=== PATIENT | male | born 1960 | race Caucasian/White ===

== ENCOUNTER 2018-01-02 14:06 | Emergency (ER) | payer OTHER ==
[~2018-01-02] VITALS: Ht 180.3 cm; Wt 131.5 kg
[~2018-01-02 14:06] MED LIST: ALBU90OI INH; AMLO5 PO; AZIT250 PO; CYCL10 PO; LOSA25 PO; MECL25 PO; METPRE4DP PO; Monodox100 MG PO; Norco 5-325 Ta1 EACH PO; ONDA8ODT MM; PRED20 PO; Prednisone20 MG PO; SPACE CHAMBER1 EACH MC
[2018-01-02] MEDS ORDERED: Ultram50 MG PO (15:18)
[2018-01-02] MEDS ORDERED: CYCL10 PO (15:18)
== END 2018-01-02 15:28 | disposition home or self-care (01) ==
LOC: ER 14:06
DX: M26.602 Left temporomandibular joint disorder, unspecified (principal); Z79.899 Other long term (current) drug therapy; Z87.891 Personal history of nicotine dependence
CPT/HCPCS: 96372; 99283; J1885

== ENCOUNTER 2018-01-16 15:35 | Emergency (ER) | payer OTHER ==
[~2018-01-16] VITALS: Ht 180.3 cm; Wt 134.3 kg
[~2018-01-16 15:35] MED LIST changes: +Ultram50 MG PO
[2018-01-16] MEDS ORDERED: Norco 5-325 Ta1 EACH PO (16:25)
[2018-01-16] MEDS ORDERED: METPRE4DP PO (16:25)
[2018-01-16] MEDS ORDERED: CYCL10 PO (16:25)
== END 2018-01-16 16:34 | disposition home or self-care (01) ==
LOC: ER 15:35
DX: M26.622 Arthralgia of left temporomandibular joint (principal); Z79.899 Other long term (current) drug therapy; Z87.891 Personal history of nicotine dependence
CPT/HCPCS: 99283

== ENCOUNTER 2018-05-18 14:21 | Emergency (ER) | payer OTHER ==
[~2018-05-18] VITALS: Ht 180.3 cm; Wt 129.7 kg
[2018-05-18] MEDS ORDERED: CLIN300 PO (15:07)
[2018-05-18] MEDS ORDERED: AMOX250 PO (15:08)
[2018-05-18] MEDS ORDERED: NAPR550 PO (16:15)
[2018-05-18] MEDS ORDERED: CYCL10 PO (16:15)
== END 2018-05-18 16:23 | disposition home or self-care (01) ==
LOC: ER 14:21
DX: M26.622 Arthralgia of left temporomandibular joint (principal); H61.22 Impacted cerumen, left ear; Z79.899 Other long term (current) drug therapy; Z87.891 Personal history of nicotine dependence
CPT/HCPCS: 99282

== ENCOUNTER 2018-07-04 15:35 | Emergency (ER) | payer OTHER ==
[~2018-07-04] VITALS: Ht 180.3 cm; Wt 127.9 kg
[~2018-07-04 15:35] MED LIST changes: +AMOX250 PO; +CLIN300 PO; +NAPR550 PO
[2018-07-04] MEDS ORDERED: Naprosyn500 MG PO (16:14)
== END 2018-07-04 16:32 | disposition home or self-care (01) ==
LOC: ER 15:35
DX: M26.602 Left temporomandibular joint disorder, unspecified (principal); Z79.899 Other long term (current) drug therapy; Z79.51 Long term (current) use of inhaled steroids; Z87.891 Personal history of nicotine dependence
CPT/HCPCS: 99283

== ENCOUNTER → 2018-11-16 | Outpatient (CLI) | payer OTHER ==
[~2018-11-16] MED LIST changes: +Naprosyn500 MG PO
[2018-11-16 10:22] LABS: Protein, Urine Quantitative 6.9 mg/dL (0.0-11.9)
[2018-11-16 11:40] LABS: Microalbumin, Urine Quant. <5.000 mg/L (0.000-20.000)
== END | disposition home or self-care (01) ==
LOC: LAB 08:40 → LAB SHORT 08:40
PROVIDERS: Internal Medicine Nephrology
DX: N18.2 Chronic kidney disease, stage 2 (mild) (principal); D63.1 Anemia in chronic kidney disease
CPT/HCPCS: 81050; 82043; 82570; 84156

== ENCOUNTER → 2019-03-12 | Outpatient (CLI) | payer OTHER ==
[2019-03-12 09:19] LABS: Anion Gap 4 mmol/L (6-16); Blood Urea Nitrogen 14 mg/dL (8-24); CO2, Blood 28 mmol/L (21-32); Calcium, Blood 8.4 mg/dL (8.5-10.1); Chloride, Blood 103 mmol/L (98-108); Creatinine, Blood 0.83 mg/dL (0.60-1.20); Glomerular Filtration Rate >60 (60-); Glucose, Blood 117 mg/dL (70-99); Phosphorus, Blood 3.9 mg/dL (2.5-4.9); Potassium, Blood 4.3 mmol/L (3.5-5.5); Sodium, Blood 135 mmol/L (136-145)
== END | disposition home or self-care (01) ==
LOC: LAB 08:45 → LAB SHORT 08:45 → LAB FUT 09-18 13:05
PROVIDERS: Internal Medicine Nephrology
DX: N18.2 Chronic kidney disease, stage 2 (mild) (principal); D63.1 Anemia in chronic kidney disease
CPT/HCPCS: 36415; 80069; 85018

== ENCOUNTER 2019-07-16 17:09 | Emergency (ER) | payer OTHER ==
[~2019-07-16] VITALS: Ht 180.3 cm; Wt 132.4 kg
[2019-07-16] MEDS ORDERED: Bactrim Ds Tab1 EACH PO (17:21)
[2019-07-16] MEDS ORDERED: Keflex500 MG PO (17:21)
[2019-07-16] MEDS ORDERED: CEPH500 PO (17:24)
== END 2019-07-16 17:27 | disposition home or self-care (01) ==
LOC: ER 17:09
DX: L02.415 Cutaneous abscess of right lower limb (principal); L03.115 Cellulitis of right lower limb; Z87.891 Personal history of nicotine dependence; Z79.899 Other long term (current) drug therapy
CPT/HCPCS: 99281

== ENCOUNTER 2019-07-23 08:10 | Emergency (ER) | payer OTHER ==
[~2019-07-23] VITALS: Ht 180.3 cm; Wt 132.4 kg
[~2019-07-23 08:10] MED LIST changes: +Bactrim Ds Tab1 EACH PO; +CEPH500 PO; +Keflex500 MG PO
[2019-07-23] MEDS ORDERED: Ultram50 MG PO (08:36)
[2019-07-23] MEDS ORDERED: Mupirocin22 GM TOP (08:36)
== END 2019-07-23 09:04 | disposition home or self-care (01) ==
LOC: ER 08:10
DX: L02.415 Cutaneous abscess of right lower limb (principal); Z79.899 Other long term (current) drug therapy; Z87.891 Personal history of nicotine dependence
CPT/HCPCS: 99282

== ENCOUNTER 2020-03-19 13:19 | Emergency (ER) | payer OTHER ==
[~2020-03-19] VITALS: Ht 180.3 cm; Wt 132.4 kg
[~2020-03-19 13:19] MED LIST changes: +Mupirocin22 GM TOP
[2020-03-19] MEDS ORDERED: HYDCHL25 PO (14:17)
[2020-03-19] MEDS ORDERED: METFORMIN HCL500 M2 PO (14:18)
[2020-03-19] MEDS ORDERED: ESCI10 PO (14:18)
[2020-03-19] MEDS ORDERED: Norco 5-325 Ta1 EACH PO (15:17)
[2020-03-19] MEDS ORDERED: Robaxin-750750 MG PO (15:17)
== END 2020-03-19 15:34 | disposition home or self-care (01) ==
LOC: ER 13:19
DX: R07.81 Pleurodynia (principal); Z79.899 Other long term (current) drug therapy; Z87.891 Personal history of nicotine dependence
CPT/HCPCS: 71046; 99283-25

== ENCOUNTER 2024-12-19 08:56 | Emergency (ER) | payer OTHER ==
[~2024-12-19] VITALS: Ht 180.3 cm; Wt 136.1 kg
[~2024-12-19 08:56] MED LIST changes: +ESCI10 PO; +ESCI20 PO; +FUROSEMIDE40 MG PO; +HYDCHL25 PO; +KLOR-CON 1010 ME9 PO; +METFORMIN HCL500 M2 PO; +Robaxin-750750 MG PO; +Tegretol200 MG PO
[2024-12-19] MEDS ORDERED: Ipratropium/Albuterol SulF 2.5-0.5MG/3 ML Amp INH ONE (09:25)
[2024-12-19] MEDS ORDERED: PredniSONE 20 MG Tab PO ONE (09:25)
[2024-12-19 10:11] LABS: CORONAVIRUS COVID-19 AG Negative (NEGATIVE); INFLUENZA A AG Negative (NEGATIVE); INFLUENZA B AG Negative (NEGATIVE)
[2024-12-19 11:21] LABS: BASOPHILS ABSOLUTE AUTO 0.03 K/mm3 (0.00-0.23); BASOPHILS PERCENT AUTO 0 % (0-2); EOSINOPHILS PERCENT AUTO 2 % (0-6); Hematocrit 49.3 % (37.0-53.0); Hemoglobin 16.6 g/dL (13.5-17.5); IMMATURE GRAN ABSOLUTE AUTO 0.07 K/mm3 (0.00-0.10); IMMATURE GRAN PERCENT AUTO 1 % (0-1); LYMPHOCYTES ABSOLUTE AUTO 1.14 K/mm3 (0.84-5.20); LYMPHOCYTES PERCENT AUTO 11 % (21-46); MONOCYTES ABSOLUTE AUTO 0.41 K/mm3 (0.16-1.47); MONOCYTES PERCENT AUTO 4 % (4-13); Mean Corpuscular HGB 32.9 pg (26.0-34.0); Mean Corpuscular HGB Conc 33.7 g/dL (31.5-36.5); Mean Corpuscular Volume 98 fL (80-100); Mean Platelet Volume 8.9 fL (9.1-12.4); NEUTROPHILS ABSOLUTE AUTO 8.79 K/mm3 (1.96-9.15); NEUTROPHILS PERCENT AUTO 83 % (41-73); NRBC ABSOLUTE 0.03 K/mm3 (0.00-0.02); NRBC Auto 0.3 /100 WBC (0.0-0.2); Platelet Count 245 K/mm3 (150-400); RDW Coefficient Variation 13.5 % (11.7-14.2); RDW Standard Deviation 48.2 fL (35.1-46.3); Red Blood Cell Count 5.05 M/mm3 (4.30-5.90); White Blood Cell Count 10.64 K/mm3 (4.00-11.30)
[2024-12-19 11:47] LABS: Albumin, Blood 3.5 g/dL (3.4-5.0); Albumin/Globulin Ratio 0.9 (0.8-1.8); Bilirubin, Total 0.7 mg/dL (0.1-1.0); Bun/Creatinine Ratio 5.8 (12.0-20.0); Calcium, Blood 8.5 mg/dL (8.5-10.1); Creatinine, Blood 0.69 mg/dL (0.60-1.20); Globulin, Blood 3.9 g/dL (2.2-4.0); Potassium, Blood 3.7 mmol/L (3.5-5.5); Total Protein, Blood 7.4 g/dL (6.4-8.2)
[2024-12-19 12:45] VITALS: BP 147/77
[2024-12-19] MEDS ORDERED: ALBU90OI INH (13:04)
[2024-12-19] MEDS ORDERED: Prednisone20 MG PO (13:04)
== END 2024-12-19 13:13 | disposition home or self-care (01) ==
LOC: ER 08:56
PROVIDERS: Emergency Medicine
DX: R06.02 Shortness of breath (principal); Z79.899 Other long term (current) drug therapy; Z79.84 Long term (current) use of oral hypoglycemic drugs; Z87.891 Personal history of nicotine dependence
CPT/HCPCS: 71046; 80053; 83880; 84484; 85025; 87428-QW; 93005; 93010; 94640; 94664; 99285-25; J7512

== ENCOUNTER 2024-12-30 20:46 | Emergency (ER) | payer OTHER ==
[~2024-12-30] VITALS: Ht 180.3 cm; Wt 138.3 kg
[2024-12-30] MEDS ORDERED: LORazepam 2 MG/ML 1ML Injection IV ONE (21:15)
[2024-12-30 21:18] LABS: BASOPHILS ABSOLUTE AUTO 0.06 K/mm3 (0.00-0.23); BASOPHILS PERCENT AUTO 0 % (0-2); EOSINOPHILS ABSOLUTE AUTO 0.44 K/mm3 (0.00-0.68); EOSINOPHILS PERCENT AUTO 3 % (0-6); Hematocrit 50.4 % (37.0-53.0); Hemoglobin 16.8 g/dL (13.5-17.5); IMMATURE GRAN ABSOLUTE AUTO 0.08 K/mm3 (0.00-0.10); IMMATURE GRAN PERCENT AUTO 1 % (0-1); LYMPHOCYTES ABSOLUTE AUTO 1.64 K/mm3 (0.84-5.20); LYMPHOCYTES PERCENT AUTO 12 % (21-46); MONOCYTES ABSOLUTE AUTO 1.02 K/mm3 (0.16-1.47); MONOCYTES PERCENT AUTO 7 % (4-13); Mean Corpuscular HGB 32.8 pg (26.0-34.0); Mean Corpuscular HGB Conc 33.3 g/dL (31.5-36.5); Mean Corpuscular Volume 98 fL (80-100); Mean Platelet Volume 8.9 fL (9.1-12.4); NEUTROPHILS ABSOLUTE AUTO 10.76 K/mm3 (1.96-9.15); NEUTROPHILS PERCENT AUTO 77 % (41-73); Platelet Count 255 K/mm3 (150-400); RDW Coefficient Variation 13.5 % (11.7-14.2); RDW Standard Deviation 49.2 fL (35.1-46.3); Red Blood Cell Count 5.12 M/mm3 (4.30-5.90)
[2024-12-30 21:40] LABS: Albumin, Blood 3.5 g/dL (3.4-5.0); Albumin/Globulin Ratio 0.9 (0.8-1.8); Bilirubin, Total 0.9 mg/dL (0.1-1.0); Bun/Creatinine Ratio 4.8 (12.0-20.0); Calcium, Blood 8.4 mg/dL (8.5-10.1); Creatinine, Blood 0.84 mg/dL (0.60-1.20); Potassium, Blood 3.6 mmol/L (3.5-5.5); Total Protein, Blood 7.5 g/dL (6.4-8.2)
[2024-12-30 22:34] VITALS: BP 143/89
== END 2024-12-30 22:56 | disposition home or self-care (01) ==
LOC: ER 20:46
PROVIDERS: Student in an Organized Health Care Education/Training Program
DX: Z03.822 Encounter for observation for suspected aspirated (inhaled) foreign body ruled out (principal); Z79.899 Other long term (current) drug therapy; Z87.891 Personal history of nicotine dependence
CPT/HCPCS: 71045; 71260; 80053; 84484; 85025; 93005; 93010; 96374-59; 99284-25; J2060; Q9967

== ENCOUNTER 2025-01-11 17:18 | Inpatient (IN) | payer OTHER ==
[~2025-01-11] VITALS: Ht 180.3 cm; Wt 136.1 kg
[2025-01-11] MEDS ORDERED: Gabapentin 300 MG Cap PO ONE ×2 (17:40→19:20)
[2025-01-11] MEDS ORDERED: Ipratropium/Albuterol SulF 2.5-0.5MG/3 ML Amp INH ONE (17:40)
[2025-01-11 18:15] LABS: BASOPHILS ABSOLUTE AUTO 0.06 K/mm3 (0.00-0.23); BASOPHILS PERCENT AUTO 1 % (0-2); EOSINOPHILS ABSOLUTE AUTO 0.51 K/mm3 (0.00-0.68); EOSINOPHILS PERCENT AUTO 4 % (0-6); Hematocrit 51.9 % (37.0-53.0); IMMATURE GRAN ABSOLUTE AUTO 0.04 K/mm3 (0.00-0.10); IMMATURE GRAN PERCENT AUTO 0 % (0-1); LYMPHOCYTES ABSOLUTE AUTO 1.63 K/mm3 (0.84-5.20); LYMPHOCYTES PERCENT AUTO 14 % (21-46); MONOCYTES ABSOLUTE AUTO 1.01 K/mm3 (0.16-1.47); MONOCYTES PERCENT AUTO 8 % (4-13); Mean Corpuscular HGB 31.7 pg (26.0-34.0); Mean Corpuscular HGB Conc 32.8 g/dL (31.5-36.5); Mean Corpuscular Volume 97 fL (80-100); Mean Platelet Volume 9.1 fL (9.1-12.4); NEUTROPHILS ABSOLUTE AUTO 8.77 K/mm3 (1.96-9.15); NEUTROPHILS PERCENT AUTO 73 % (41-73); Platelet Count 284 K/mm3 (150-400); RDW Coefficient Variation 13.3 % (11.7-14.2); RDW Standard Deviation 47.8 fL (35.1-46.3); Red Blood Cell Count 5.37 M/mm3 (4.30-5.90); White Blood Cell Count 12.02 K/mm3 (4.00-11.30)
[2025-01-11 18:41] LABS: Albumin, Blood 3.5 g/dL (3.4-5.0); Albumin/Globulin Ratio 0.9 (0.8-1.8); Bilirubin, Total 0.7 mg/dL (0.1-1.0); Bun/Creatinine Ratio 10.3 (12.0-20.0); Calcium, Blood 9.1 mg/dL (8.5-10.1); Creatinine, Blood 0.78 mg/dL (0.60-1.20); Globulin, Blood 3.7 g/dL (2.2-4.0); Potassium, Blood 3.7 mmol/L (3.5-5.5); Total Protein, Blood 7.2 g/dL (6.4-8.2)
[2025-01-11] MEDS ORDERED: MethylPREDNISolone Sod Succ 125 MG Vial IV ONE (19:20)
[2025-01-11] MEDS ORDERED: Aspirin 325 MG Tab PO ONE (20:20)
[2025-01-11 21:46] LABS: Influenza A, PCR NEGATIVE (NEGATIVE); Influenza B, PCR NEGATIVE (NEGATIVE); Resp Syncytial Virus, PCR NEGATIVE (NEGATIVE); SARS-Cov-2 (COVID-19) PCR, MMC NEGATIVE (NEGATIVE)
[2025-01-12] VITALS (9 sets, daily range): BP systolic 146–172; BP diastolic 80–105
[2025-01-12] MEDS ORDERED: Ondansetron HCl 2 MG / ML 2ML Vial IV PRN (01:15)
[2025-01-12] MEDS ORDERED: Ipratropium/Albuterol SulF 2.5-0.5MG/3 ML Amp INH PRN (01:15)
[2025-01-12] MEDS ORDERED: Azithromycin 500 MG in NS 250 ML IV SCH (01:27)
--- NOTE | 2025-01-12 02:35 | NUR ---
Admission note: Pt arrived on unit at 0035, pt admitted for dyspnea/sob. A&Ox4, alert and cooperative w/ care. On arrival, SOB on transfer, mildly diaphoretic pt reports this has improved since earlier in day. On arrival b/p elevated, has since come down within normal range w/o intervention. Pt maintaining adequate saturation on RA, CPAP put in place by RT, pt tolerating well. 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 Denies pain. Running SR on tele, rate 80s. Bed locked in lowest position, call light within reach, continuing to monitor.
[2025-01-12] MEDS ORDERED: Mometasone/Formoterol MDI 200/5 mcg 13 GM INH SCH (03:00)
[2025-01-12 04:24] LABS: BASOPHILS ABSOLUTE AUTO 0.02 K/mm3 (0.00-0.23); BASOPHILS PERCENT AUTO 0 % (0-2); EOSINOPHILS ABSOLUTE AUTO 0.01 K/mm3 (0.00-0.68); EOSINOPHILS PERCENT AUTO 0 % (0-6); Hematocrit 52.9 % (37.0-53.0); Hemoglobin 17.6 g/dL (13.5-17.5); IMMATURE GRAN ABSOLUTE AUTO 0.06 K/mm3 (0.00-0.10); IMMATURE GRAN PERCENT AUTO 1 % (0-1); LYMPHOCYTES ABSOLUTE AUTO 0.66 K/mm3 (0.84-5.20); LYMPHOCYTES PERCENT AUTO 5 % (21-46); MONOCYTES ABSOLUTE AUTO 0.15 K/mm3 (0.16-1.47); MONOCYTES PERCENT AUTO 1 % (4-13); Mean Corpuscular HGB Conc 33.3 g/dL (31.5-36.5); Mean Corpuscular Volume 96 fL (80-100); Mean Platelet Volume 9.8 fL (9.1-12.4); NEUTROPHILS ABSOLUTE AUTO 12.28 K/mm3 (1.96-9.15); NEUTROPHILS PERCENT AUTO 93 % (41-73); Platelet Count 324 K/mm3 (150-400); RDW Coefficient Variation 13.3 % (11.7-14.2); RDW Standard Deviation 47.5 fL (35.1-46.3); White Blood Cell Count 13.18 K/mm3 (4.00-11.30)
[2025-01-12 04:47] LABS: Albumin, Blood 3.4 g/dL (3.4-5.0); Albumin/Globulin Ratio 0.9 (0.8-1.8); Bilirubin, Total 0.9 mg/dL (0.1-1.0); Calcium, Blood 8.6 mg/dL (8.5-10.1); Creatinine, Blood 0.64 mg/dL (0.60-1.20); Globulin, Blood 3.9 g/dL (2.2-4.0); Potassium, Blood 4.2 mmol/L (3.5-5.5); Total Protein, Blood 7.3 g/dL (6.4-8.2)
--- NOTE | 2025-01-12 05:01 | NUR ---
Shift summary: PT A&OX4, COOPERATIVE W/ STAFF AND CARE. 1 STAFF ASSIST D/T SOB ON EXERTION. SEE ADMISSION SUMMARY REGARDING FURTHER DETAILS. CPAP WAS PUT IN PLACE W/ RT, HAS BEEN ON THROUGHOUT SHIFT SINCE. CPAP ON 03-28, TOLERATING WELL. PT STATED THAT HIS BREATHING IMPROVED AFTER CPAP AND DENIED ANY FURTHER SOB THROUGHOUT SHIFT. O2 SATURATIONS STAYING AT >90%, ON TELE SR W/ HR >90S. BED IN LOWEST POSITION, CALL LIGHT WITHIN REACH, ADVISED PT TO ADVISE STAFF WHEN HE NEEDS ASSISTANCE TO RESTROOM OR ANY ACTIVITIES. CONTINUE TO MONITOR.
[2025-01-12] MEDS ORDERED: Neurontin300 MG PO (05:31)
[2025-01-12] MEDS ORDERED: ESCI10 PO (05:33)
[2025-01-12] MEDS ORDERED: Amitriptyline H10 MG PO (05:34)
[2025-01-12] MEDS ORDERED: Gabapentin 300 MG Cap PO SCH ×3 (05:40→14:00)
[2025-01-12] MEDS ORDERED: LORazepam 2 MG/ML 1ML Injection IV ONE (05:45)
[2025-01-12] MEDS ORDERED: Albuterol HFA200 ACT/6.7 GM INH INH PRN (06:20)
--- NOTE | 2025-01-12 06:35 | NUR ---
REVIEWED ALL [employer] CHECKER DOCUMENTATION AND AGREE WITH ALL ABOVE.
[2025-01-12] MEDS ORDERED: Furosemide 40 MG Tab PO SCH (09:00)
[2025-01-12] MEDS ORDERED: MethylPREDNISolone Sod Succ 125 MG Vial IV SCH (09:00)
[2025-01-12] MEDS ORDERED: Losartan Potassium 50 MG Tab PO SCH (09:00)
[2025-01-12] MEDS ORDERED: HydroCHLOROthiazide 25 mg Tab PO SCH (09:00)
[2025-01-12] MEDS ORDERED: Citalopram Hydrobromide 20 MG Tab PO SCH (09:00)
[2025-01-12] MEDS ORDERED: Enoxaparin 40 MG/0.4 ML SYR SC SCH (09:00)
[2025-01-12] MEDS ORDERED: Insulin Human Lispro 100 Units/ML 3ML Syringe SC SCH (11:30)
[2025-01-12] MEDS ORDERED: Amitriptyline HCl 10 MG Tab PO SCH (21:00)
[2025-01-13 03:44] LABS: Hematocrit 51.2 % (37.0-53.0); Hemoglobin 16.6 g/dL (13.5-17.5); Mean Corpuscular HGB 31.6 pg (26.0-34.0); Mean Corpuscular HGB Conc 32.4 g/dL (31.5-36.5); Mean Corpuscular Volume 97 fL (80-100); Mean Platelet Volume 9.6 fL (9.1-12.4); Platelet Count 379 K/mm3 (150-400); RDW Coefficient Variation 13.4 % (11.7-14.2); RDW Standard Deviation 47.8 fL (35.1-46.3); Red Blood Cell Count 5.26 M/mm3 (4.30-5.90); White Blood Cell Count 21.21 K/mm3 (4.00-11.30)
--- NOTE | 2025-01-13 04:00 | NUR ---
SHIFT SUMMARY PATIENT IS ALERT AND ORIENTED. PATIENT HAS HAD NO ACUTE EVENTS THIS SHIFT. PATIENT HAS BEEN A 1X ASSIST DUE TO SOB ON EXERTION AND HELP WITH LINES. PATIENT IS ON 3L NC WITH CPAP AT [facility]. PATIENT HAS HAD NO COMPLAINTS OF PAIN, NAUSEA, SOB OR VOMITTING THIS SHIFT. BED IN LOCKED AND LOWEST POSITION. CALL LIGHT IN PLACE. CALLS APPROPRIATELY.
[2025-01-13 04:08] VITALS: BP 158/101
[2025-01-13 04:18] LABS: Bun/Creatinine Ratio 14.8 (12.0-20.0); Calcium, Blood 8.8 mg/dL (8.5-10.1); Creatinine, Blood 0.95 mg/dL (0.60-1.20); Potassium, Blood 4.3 mmol/L (3.5-5.5)
[2025-01-13 07:36] VITALS: BP 154/97
[2025-01-13 11:21] VITALS: BP 153/92
[2025-01-13 15:17] VITALS: BP 125/88
--- NOTE | 2025-01-13 17:04 | NUR ---
SHIFT SUMMARY PT REMAINS ALERT AND ORIENTED. BP REMAINS STABLE. PT TITRATED TO ROOM AIR THIS AM AND O2 SATS HAVE REMAINED ABOVE 90%. PT DENIES ANY PAIN. PT UP INDEPENDENT TO THE BATHROOM NEEDED TO VOID. PLAN FOR PT TO HAVE OVERNIGHT OXIMETRY DONE THIS EVENING.
[2025-01-13 20:40] VITALS: BP 149/86
--- NOTE | 2025-01-14 01:05 | NUR ---
ASSUMPTION OF CARE/PATIENT UPDATE THIS RN ASSUMED CARE OF PATIENT AT 1900. PT A&O X4. ABLE TO MAKE NEEDS KNOWN. INDEPENDENT WITH ADL'S. ON RA WITH SPO2 >92% AT REST; NOTED DYSPNEA WITH EXERTION. SR ON MONITOR. BP STABLE. AFEBRILE. PT STARTED SLEEP OXIMETRY STUDY EARLIER IN SHIFT AND CONTINUES TO BE SLEEPING FOR STUDY. NOTED DESATTING FREQUENTLY ON MONITOR WITH SPO2 LOW 80'S. PT CHEST RISE/FALL NOTED. CONTINUES TO BE ON TELE. THIS RN DID NOT GET MIDNIGHT VITALS D/T SLEEP STUDY ONGOING. IF PATIENT WAKES, VITALS WILL BE TAKEN; CONSTRUCTION EQUIPMENT OPERATOR AWARE. BED IN LOWEST POSITION AND CALL LIGHT WITHIN REACH.
[2025-01-14 01:57] VITALS: BP 157/97
[2025-01-14 05:18] VITALS: BP 157/102
--- NOTE | 2025-01-14 05:21 | NUR ---
SHIFT SUMMARY SEE PREVIOUS NOTE NO NEURO CHANGES. PT COMPLETED SLEEP OXIMETRY STUDY AROUND 0500 THIS AM. PT NOTED TO HAVE FREQUENTLY DESATTED TO 80'S, RECOVERING TO THE LOW 90'S WHILE REMAINING ON RA. WHEN SLEEP STUDY COMPLETED, PT DECLINED TO WEAR CPAP. HTN NOTED THIS AM. OTHER VSS. PT WALKING TO BATHROOM INDEPENDENTLY TO VOID. PT STATED THAT HE "FORGOT" TO USE URINAL. BED IN LOWEST POSITION AND CALL LIGHT WITHIN REACH. THIS RN WILL REPORT TO ONCOMING DAYSHIFT RN.
[2025-01-14 07:04] LABS: BASOPHILS ABSOLUTE AUTO 0.04 K/mm3 (0.00-0.23); BASOPHILS PERCENT AUTO 0 % (0-2); EOSINOPHILS ABSOLUTE AUTO 0.03 K/mm3 (0.00-0.68); EOSINOPHILS PERCENT AUTO 0 % (0-6); Hemoglobin 17.7 g/dL (13.5-17.5); IMMATURE GRAN PERCENT AUTO 1 % (0-1); LYMPHOCYTES ABSOLUTE AUTO 0.97 K/mm3 (0.84-5.20); LYMPHOCYTES PERCENT AUTO 5 % (21-46); MONOCYTES ABSOLUTE AUTO 0.92 K/mm3 (0.16-1.47); MONOCYTES PERCENT AUTO 4 % (4-13); Mean Corpuscular HGB 32.4 pg (26.0-34.0); Mean Corpuscular HGB Conc 33.4 g/dL (31.5-36.5); Mean Corpuscular Volume 97 fL (80-100); Mean Platelet Volume 9.3 fL (9.1-12.4); NEUTROPHILS ABSOLUTE AUTO 18.77 K/mm3 (1.96-9.15); NEUTROPHILS PERCENT AUTO 90 % (41-73); Platelet Count 382 K/mm3 (150-400); RDW Coefficient Variation 13.5 % (11.7-14.2); RDW Standard Deviation 48.5 fL (35.1-46.3); Red Blood Cell Count 5.46 M/mm3 (4.30-5.90); White Blood Cell Count 20.83 K/mm3 (4.00-11.30)
[2025-01-14 07:34] VITALS: BP 132/88
[2025-01-14 07:35] LABS: Albumin, Blood 3.5 g/dL (3.4-5.0); Albumin/Globulin Ratio 0.9 (0.8-1.8); Bilirubin, Total 0.8 mg/dL (0.1-1.0); Bun/Creatinine Ratio 21.5 (12.0-20.0); Calcium, Blood 8.6 mg/dL (8.5-10.1); Creatinine, Blood 0.79 mg/dL (0.60-1.20); Globulin, Blood 3.7 g/dL (2.2-4.0); Potassium, Blood 4.4 mmol/L (3.5-5.5); Total Protein, Blood 7.2 g/dL (6.4-8.2)
[2025-01-14] MEDS ORDERED: IPRAT-ALBUT 0.5-3 ML INH (16:01)
[2025-01-14] MEDS ORDERED: DULERA 200 MCG-13 GM INH (16:07)
[2025-01-14 16:11] VITALS: BP 140/90
--- NOTE | 2025-01-14 17:33 | NUR ---
PT A&OX4 AND WAS CALM AND COOPERATIVE. VSS ON ROOM AIR. PT INDEPENDENT TO BATHROOM AND AMBULATING AROUND ROOM. PT EDUCATED ON HOME TRILEGY AND NEBULIZER USE. PT WAS RECEPTIVE TO EDUCATION AND RESTATED EDUCATION FOR UNDERSTANDING. PT INSTRUCTED TO FOLLOW UP WITH PROVIDERS AFTER DISCHARGE. MEDS SENT TO PT REQUESTED PHARMACY. PRESENT AT DISCHARGE TO TAKE PT HOME.
== END 2025-01-14 17:41 | disposition home or self-care (01) | DRG 202 ==
LOC: ER 17:18 → ERHOLD 23:22 → PCU 23:22
PROVIDERS: Internal Medicine; Student in an Organized Health Care Education/Training Program; ADMIT Internal Medicine
PROC: 5A09357 Assistance with Respiratory Ventilation, Less than 24 Consecutive Hours, Continuous Positive Airway Pressure (ICD-10-PCS; principal; 2025-01-12)
DX: J45.901 Unspecified asthma with (acute) exacerbation (principal); Z68.41 Body mass index [BMI] 40.0-44.9, adult; J20.9 Acute bronchitis, unspecified; I10 Essential (primary) hypertension; E66.01 Morbid (severe) obesity due to excess calories; J39.8 Other specified diseases of upper respiratory tract; E11.9 Type 2 diabetes mellitus without complications; G50.0 Trigeminal neuralgia; Z96.662 Presence of left artificial ankle joint; K76.0 Fatty (change of) liver, not elsewhere classified; Z79.899 Other long term (current) drug therapy; Z79.84 Long term (current) use of oral hypoglycemic drugs; Z79.52 Long term (current) use of systemic steroids; Z79.51 Long term (current) use of inhaled steroids; Z98.890 Other specified postprocedural states; Z87.891 Personal history of nicotine dependence
CPT/HCPCS: 0241U; 36415; 71046; 71260; 80048; 80053; 82947; 83880; 84443; 84484; 85025; 85027; 93005; 93010; 93306; 94640; 94660; 94664; 94761; 94762; 96374; 99285-25; A9270; G0378; J0456; J1650; J2060; J2919; J7050; Q9967

== ENCOUNTER 2025-05-02 07:06 | Emergency (ER) | payer OTHER ==
[~2025-05-02] VITALS: Ht 180.3 cm; Wt 133.8 kg
[~2025-05-02 07:06] MED LIST changes: +Amitriptyline H10 MG PO; +DULERA 200 MCG-13 GM INH; +IPRAT-ALBUT 0.5-3 ML INH; +Neurontin300 MG PO
[2025-05-02 08:04] LABS: BASOPHILS ABSOLUTE AUTO 0.05 K/mm3 (0.00-0.23); BASOPHILS PERCENT AUTO 1 % (0-2); EOSINOPHILS ABSOLUTE AUTO 0.21 K/mm3 (0.00-0.68); EOSINOPHILS PERCENT AUTO 2 % (0-6); Hemoglobin 18.2 g/dL (13.5-17.5); IMMATURE GRAN ABSOLUTE AUTO 0.04 K/mm3 (0.00-0.10); IMMATURE GRAN PERCENT AUTO 0 % (0-1); LYMPHOCYTES ABSOLUTE AUTO 0.87 K/mm3 (0.84-5.20); LYMPHOCYTES PERCENT AUTO 9 % (21-46); MONOCYTES ABSOLUTE AUTO 0.65 K/mm3 (0.16-1.47); MONOCYTES PERCENT AUTO 7 % (4-13); Mean Corpuscular HGB Conc 32.4 g/dL (31.5-36.5); Mean Corpuscular Volume 92 fL (80-100); NEUTROPHILS ABSOLUTE AUTO 7.92 K/mm3 (1.96-9.15); NEUTROPHILS PERCENT AUTO 81 % (41-73); NRBC ABSOLUTE 0.00 K/mm3 (0.00-0.02); NRBC Auto 0.0 /100 WBC (0.0-0.2); Platelet Count 282 K/mm3 (150-400); RDW Coefficient Variation 16.5 % (11.7-14.2); RDW Standard Deviation 53.4 fL (35.1-46.3)
[2025-05-02 08:08] LABS: Hematocrit 56.2 % (37.0-53.0)
[2025-05-02] MEDS ORDERED: Ipratropium/Albuterol SulF 2.5-0.5MG/3 ML Amp INH ONE (08:10)
[2025-05-02 08:24] LABS: Anion Gap 7.0 mmol/L (3-11); Blood Urea Nitrogen 6.0 mg/dL (8-24); CO2, Blood 31.0 mmol/L (21-32); Calcium, Blood 8.9 mg/dL (8.5-10.1); Chloride, Blood 99.0 mmol/L (98-108); Creatinine, Blood 0.86 mg/dL (0.60-1.20); Glucose, Blood 126.0 mg/dL (70-99); Potassium, Blood 4.0 mmol/L (3.5-5.5); Sodium, Blood 133.0 mmol/L (136-145)
[2025-05-02] MEDS ORDERED: PRED20 PO (10:54)
[2025-05-02] MEDS ORDERED: AZIT250 PO (10:54)
[2025-05-02 11:01] VITALS: BP 129/84
== END 2025-05-02 11:03 | disposition home or self-care (01) ==
LOC: ER 07:06
PROVIDERS: Student in an Organized Health Care Education/Training Program
DX: J44.1 Chronic obstructive pulmonary disease with (acute) exacerbation (principal); Z79.2 Long term (current) use of antibiotics; Z79.899 Other long term (current) drug therapy; Z87.891 Personal history of nicotine dependence
CPT/HCPCS: 71046; 80048; 83880; 84484; 85025; 85379; 93005; 93010; 96374; 99285-25; J2919

== ENCOUNTER 2025-06-01 12:00 | Emergency (ER) | payer OTHER ==
[~2025-06-01] VITALS: Ht 180.3 cm; Wt 133.8 kg
[2025-06-01 12:38] LABS: BASOPHILS ABSOLUTE AUTO 0.03 K/mm3 (0.00-0.23); BASOPHILS PERCENT AUTO 0 % (0-2); EOSINOPHILS ABSOLUTE AUTO 0.34 K/mm3 (0.00-0.68); EOSINOPHILS PERCENT AUTO 4 % (0-6); Hemoglobin 18.6 g/dL (13.5-17.5); IMMATURE GRAN ABSOLUTE AUTO 0.04 K/mm3 (0.00-0.10); IMMATURE GRAN PERCENT AUTO 1 % (0-1); LYMPHOCYTES ABSOLUTE AUTO 1.25 K/mm3 (0.84-5.20); LYMPHOCYTES PERCENT AUTO 15 % (21-46); MONOCYTES ABSOLUTE AUTO 0.80 K/mm3 (0.16-1.47); MONOCYTES PERCENT AUTO 9 % (4-13); Mean Corpuscular HGB Conc 33.7 g/dL (31.5-36.5); Mean Corpuscular Volume 88 fL (80-100); NEUTROPHILS ABSOLUTE AUTO 6.15 K/mm3 (1.96-9.15); NEUTROPHILS PERCENT AUTO 72 % (41-73); NRBC ABSOLUTE 0.00 K/mm3 (0.00-0.02); NRBC Auto 0.0 /100 WBC (0.0-0.2); Platelet Count 287 K/mm3 (150-400); RDW Coefficient Variation 15.8 % (11.7-14.2); RDW Standard Deviation 50.7 fL (35.1-46.3)
[2025-06-01 12:40] LABS: Hematocrit 55.2 % (37.0-53.0)
[2025-06-01] MEDS ORDERED: [UNRECOGNIZED DRUG - CODE] PO (13:19)
[2025-06-01] MEDS ORDERED: Potassium Chlo20 ME1 PO (13:19)
[2025-06-01 14:01] LABS: Alanine Aminotransfer (ALT/SGP 52.0 U/L (12-78); Albumin, Blood 3.7 g/dL (3.4-5.0); Albumin/Globulin Ratio 1.0 (0.8-1.8); Anion Gap 7.0 mmol/L (3-11); Aspartate Aminotrans (AST/SGOT 38.0 U/L (12-37); Bilirubin, Total 0.7 mg/dL (0.1-1.0); Blood Urea Nitrogen 6.0 mg/dL (8-24); CO2, Blood 31.0 mmol/L (21-32); Calcium, Blood 8.8 mg/dL (8.5-10.1); Chloride, Blood 99.0 mmol/L (98-108); Creatinine, Blood 0.83 mg/dL (0.60-1.20); Globulin, Blood 3.6 g/dL (2.2-4.0); Glucose, Blood 97.0 mg/dL (70-99); Potassium, Blood 4.2 mmol/L (3.5-5.5); Sodium, Blood 133.0 mmol/L (136-145); Total Protein, Blood 7.3 g/dL (6.4-8.2)
[2025-06-01 16:31] VITALS: BP 146/90
[2025-06-01] MEDS ORDERED: NS 250 ML IV SCH ×2 (16:45→16:55)
== END 2025-06-01 17:37 | disposition home or self-care (01) ==
LOC: ER 12:00
PROVIDERS: Student in an Organized Health Care Education/Training Program
DX: R06.02 Shortness of breath (principal); J45.909 Unspecified asthma, uncomplicated; E11.9 Type 2 diabetes mellitus without complications; I10 Essential (primary) hypertension; Z79.899 Other long term (current) drug therapy; Z87.891 Personal history of nicotine dependence
CPT/HCPCS: 71046; 80053; 83880; 84484; 85025; 85379; 93005; 93010; 96374; 99285-25; J2919; J7030

== ENCOUNTER 2025-08-18 16:47 | Emergency (ER) | payer OTHER ==
[~2025-08-18] VITALS: Ht 180.3 cm; Wt 131.5 kg
[~2025-08-18 16:47] MED LIST changes: +Potassium Chlo20 ME1 PO; +[UNRECOGNIZED DRUG - CODE] PO
[2025-08-18] MEDS ORDERED: Ipratropium/Albuterol SulF 2.5-0.5MG/3 ML Amp INH ONE ×3 (17:00→19:30)
[2025-08-18 18:26] LABS: BASOPHILS ABSOLUTE AUTO 0.05 K/mm3 (0.00-0.23); BASOPHILS PERCENT AUTO 0 % (0-2); EOSINOPHILS ABSOLUTE AUTO 0.10 K/mm3 (0.00-0.68); EOSINOPHILS PERCENT AUTO 1 % (0-6); Hemoglobin 19.3 g/dL (13.5-17.5); IMMATURE GRAN ABSOLUTE AUTO 0.06 K/mm3 (0.00-0.10); IMMATURE GRAN PERCENT AUTO 1 % (0-1); LYMPHOCYTES ABSOLUTE AUTO 0.62 K/mm3 (0.84-5.20); LYMPHOCYTES PERCENT AUTO 5 % (21-46); MONOCYTES ABSOLUTE AUTO 0.48 K/mm3 (0.16-1.47); MONOCYTES PERCENT AUTO 4 % (4-13); Mean Corpuscular HGB Conc 34.3 g/dL (31.5-36.5); Mean Corpuscular Volume 88 fL (80-100); NEUTROPHILS ABSOLUTE AUTO 11.04 K/mm3 (1.96-9.15); NEUTROPHILS PERCENT AUTO 89 % (41-73); NRBC ABSOLUTE 0.00 K/mm3 (0.00-0.02); NRBC Auto 0.0 /100 WBC (0.0-0.2); Platelet Count 257 K/mm3 (150-400); RDW Coefficient Variation 13.3 % (11.7-14.2); RDW Standard Deviation 43.2 fL (35.1-46.3)
[2025-08-18 18:31] LABS: Hematocrit 56.3 % (37.0-53.0)
[2025-08-18 18:51] LABS: Alanine Aminotransfer (ALT/SGP 61.0 U/L (12-78); Albumin, Blood 4.2 g/dL (3.4-5.0); Albumin/Globulin Ratio 1.2 (0.8-1.8); Anion Gap 8.0 mmol/L (3-11); Aspartate Aminotrans (AST/SGOT 33.0 U/L (12-37); Bilirubin, Total 1.2 mg/dL (0.1-1.0); Blood Urea Nitrogen 6.0 mg/dL (8-24); CO2, Blood 29.0 mmol/L (21-32); Calcium, Blood 9.5 mg/dL (8.5-10.1); Chloride, Blood 92.0 mmol/L (98-108); Creatinine, Blood 0.75 mg/dL (0.60-1.20); Globulin, Blood 3.4 g/dL (2.2-4.0); Glucose, Blood 103.0 mg/dL (70-99); Potassium, Blood 4.2 mmol/L (3.5-5.5); Sodium, Blood 125.0 mmol/L (136-145); Total Protein, Blood 7.6 g/dL (6.4-8.2)
[2025-08-18 21:10] VITALS: BP 135/77
== END 2025-08-18 21:15 | disposition home or self-care (01) ==
LOC: ER 16:47
PROVIDERS: Student in an Organized Health Care Education/Training Program
DX: J44.1 Chronic obstructive pulmonary disease with (acute) exacerbation (principal); I10 Essential (primary) hypertension; E11.9 Type 2 diabetes mellitus without complications; Z87.891 Personal history of nicotine dependence; Z79.899 Other long term (current) drug therapy
CPT/HCPCS: 71046; 80053; 83880; 84484; 85025; 85379; 93005; 93010; 93971; 96374; 99285-25; A9270; J2919